=== PATIENT | female | born 1970 | race American Indian/Alaskan Native ===

== ENCOUNTER 2017-10-02 10:25 | Outpatient (CLI) | payer OTHER ==
--- NOTE | 2017-10-02 18:59 | XRay Report ---
FINAL REPORT PROCEDURE: Lumbar spine. TECHNIQUE: Three views. HISTORY: Low back pain. COMPARISON: No prior studies are available for comparison. FINDINGS: The lumbar vertebrae have normal height and satisfactory alignment. There are no fractures. There is no spondylolisthesis. There is mild disc space narrowing at L3-4. The sacrum and sacroiliac joints appear normal. IMPRESSION: Mild degenerative disc disease at L3-4.
--- NOTE | 2017-10-02 19:14 | XRay Report ---
FINAL REPORT PROCEDURE: Right and left ankles. TECHNIQUE: AP and lateral views of each ankle. HISTORY: PAIN IN ANKLE AND JOINTS OF FOOT COMPARISON: No prior studies are available for comparison. FINDINGS: Right ankle: The bones appear intact without fracture or dislocation. The joint spaces appear satisfactory. The soft tissues are unremarkable. Left ankle: The bones appear intact without fracture. The joint spaces appear satisfactory. The soft tissues are unremarkable. IMPRESSION: No significant abnormalities.
== END 2017-10-02 10:26 | disposition home or self-care (01) ==
LOC: XRAY 10:25
PROVIDERS: ATTEND Internal Medicine
DX: Z02.71 Encounter for disability determination (principal); M51.36 Other intervertebral disc degeneration, lumbar region; M25.571 Pain in right ankle and joints of right foot; M25.572 Pain in left ankle and joints of left foot
CPT/HCPCS: 72100

== ENCOUNTER 2017-10-08 09:44 | Emergency (ER) | payer SELFPAY ==
[2017-10-08 11:10] LABS: Basophils % (Auto) 0.8 % (0.0-1.8); Eosinophils # (Auto) 0.1 K/mm3 (0.0-0.4); Hematocrit 39.1 % (30.3-42.9); Hemoglobin 12.8 gm/dl (10.1-14.3); Lymphocytes # (Auto) 2.4 K/mm3 (1.2-5.4); Lymphocytes % (Auto) 36.5 % (13.4-35.0); Mean Corpuscular HGB Conc 33 % (30-34); Mean Corpuscular Hemoglobin 30 pg (28-32); Mean Corpuscular Volume 90 fl (79-97); Monocytes # (Auto) 0.4 K/mm3 (0.0-0.8); Platelet Count 175 K/mm3 (140-440); Red Blood Count 4.33 M/mm3 (3.65-5.03); Red Cell Distribution Width 13.7 % (13.2-15.2)
--- NOTE | 2017-10-08 11:19 | XRay Report ---
CHEST 2 VIEWS INDICATION: Shortness of breath. COMPARISON: None similar. FINDINGS: PA and lateral chest radiographs demonstrate normal cardiomediastinal silhouette. Clear lungs. Slight mid to lower thoracic spine degenerative spurring. CONCLUSION: No acute disease. Thank you for the opportunity to participate in this patient's care.
[2017-10-08 11:24] LABS: BUN/Creatinine Ratio 12; Blood Urea Nitrogen 13 mg/dL (7-17); Calcium 8.9 mg/dL (8.4-10.2); Hemolysis Index 6
[2017-10-08] MEDS ORDERED: NITROSTAT SL ONE (11:51)
--- NOTE | 2017-10-08 11:51 | Emergency Department Report ---
Blank Doc - Documentation Documentation: Patient is a 47-year-old [place] female with a past medical history hypertension and has not taken her antihypertensive medicines and approximately one year who is presenting with 3-4 days of chest tightness or shortness of breath and radiation to the right shoulder. Patient states that this is intermittent. Patient states she is having some chest tightness at this time. Patient will be moved to the main ED for continued care. Patient's needs to be placed on a monitor with nitroglycerin blood pressure control and possible admission.
[2017-10-08 15:03] VITALS: BP 156/104
[2017-10-08] MEDS ORDERED: HCTZ PO ONE (15:47)
[2017-10-08] MEDS ORDERED: ZESTRIL PO ONE (15:47)
--- NOTE | 2017-10-08 15:48 | Emergency Department Report ---
ED Chest Pain HPI - General Chief Complaint: Headache Stated Complaint: CHEST PAIN/HEADACHE Time Seen by Provider: 10/08/17 11:33 Source: patient, family Mode of arrival: Ambulatory Limitations: No Limitations - History of Present Illness Initial Comments: Patient is a 47-year-old female who reported chest tightness and headache pain for 2 days. Complains that she is out of her blood pressure medication which is lisinopril and HCTZ. She says she does not have a primary care physician nor does she have insurance. Denies any history of heart disease. She said her only medical problem is history of garcias and also high blood pressure. Chest tightness mid chest is 4 out of 10. Nothing makes it better and nothing makes it worse. Headache is 4-10 achy. No medication taken. Patient will be morbid obesity. Last menstrual period is 10/06/2017. She has not taken her antihypertensive medicines in approximately one year. She does have been chest pain and some shortness of breath intermittently .chest tightness at present that comes and goes but no shortness of breath at present. She currently has headache. Denies any vomiting or nausea. Denies any dizziness or blurred vision. Denies any cough, fever or chills. MD Complaint: chest pain, other (some headache and shortness of breath intermittently) Onset/Timin -: days(s) Onset: during rest Pain Location: substernal Pain Radiation: LUE Severity: mild Severity scale (0 -10): 4 Quality: tightness Consistency: intermittent Improves With: nothing Worsens With: exertion re: denies: nausea, vomting, diaphoresis, dyspnea, sense of impending doom Other Symptoms: denies: cough, fever, syncope, rash, acid taste in mouth, leg swelling, palpitations, burping Treatments Prior to Arrival: none Aspirin use within the Past 7 Days: (0) No - Related Data On Oral Contraceptives: No Previous Rx's Medication Instructions Recorded Last Taken Type Famotidine [Pepcid] 20 mg PO BID #40 tablet 10/13/15 Unknown Rx HYDROcodone/APAP 5-325 [[place] 1 each PO Q6HR PRN #20 tablet 10/13/15 Unknown Rx 5/325] Ibuprofen [Motrin] 600 mg PO Q8H PRN #40 tablet 10/13/15 Unknown Rx Lisinopril/Hydrochlorothiazide 1 tab PO QDAY #30 tablet 10/13/15 Unknown Rx [Zestoretic 10-12.5 mg] Promethazine [Phenergan TAB] 25 mg PO Q6HR PRN #30 tab 10/13/15 Unknown Rx Aspirin EC [Aspirin Enteric Coated 81 mg PO QDAY 30 Days #30 tablet. 10/08/17 Unknown Rx TAB] Hydrochlorothiazide [HCTZ] 25 mg PO QDAY 30 Days #30 tablet 10/08/17 Unknown Rx Lisinopril [Zestril TAB] 20 mg PO QDAY 30 Days #30 tablet 10/08/17 Unknown Rx Allergies Allergy/AdvReac Type Severity Reaction Status Date / Time No Known Allergies Allergy Verified 10/13/15 05:54 Heart Score - HEART Score History: Slightly suspicious EKG: Normal Age: 45-65 Risk factors: 1-2 risk factors Troponin: < normal limit HEART Score: 2 - Critical Actions Critical Actions: 0-3 pts:0.9-1.7%risk of adverse cardiac event.Candidate for discharge ED Review of Systems ROS: Stated complaint: CHEST PAIN/HEADACHE Other details as noted in HPI Comment: All other systems reviewed and negative Constitutional: no symptoms reported Eyes: denies: eye pain, eye discharge, vision change ENT: denies: ear pain, throat pain, congestion Respiratory: no symptoms reported, SOB with exertion. denies: cough, orthopnea , shortness of breath, SOB at rest, stridor, wheezing Cardiovascular: chest pain. denies: palpitations, dyspnea on exertion, orthopnea, edema, syncope, paroxysmal nocturnal dyspnea Gastrointestinal: denies: abdominal pain, nausea, vomiting, diarrhea, constipation, hematemesis, melena, hematochezia Genitourinary: denies: urgency, dysuria, hematuria Musculoskeletal: denies: back pain, joint swelling, arthralgia, myalgia Skin: denies: rash Neurological: denies: headache, weakness, numbness, paresthesias, confusion, abnormal gait, vertigo ED Past Medical Hx - Past Medical History Previous Medical History?: Yes Hx Hypertension: Yes Additional medical history: Garcias , Gallbladder pian - Surgical History Past Surgical History?: Yes Additional Surgical History: Garcias with skin grafts - Family History Family history: hypertension - Social History Smoking Status: Former Smoker Substance Use Type: None, Prescribed - Medications Home Medications: Home Medications Medication Instructions Recorded Confirmed Last Taken Type Famotidine [Pepcid] 20 mg PO BID #40 tablet 10/13/15 Unknown Rx HYDROcodone/APAP 5-325 [[place] 1 each PO Q6HR PRN #20 tablet 10/13/15 Unknown Rx 5/325] Ibuprofen [Motrin] 600 mg PO Q8H PRN #40 tablet 10/13/15 Unknown Rx Lisinopril/Hydrochlorothiazide 1 tab PO QDAY #30 tablet 10/13/15 Unknown Rx [Zestoretic 10-12.5 mg] Promethazine [Phenergan TAB] 25 mg PO Q6HR PRN #30 tab 10/13/15 Unknown Rx Aspirin EC [Aspirin Enteric Coated 81 mg PO QDAY 30 Days #30 tablet.dr 10/08/17 Unknown Rx TAB] Hydrochlorothiazide [HCTZ] 25 mg PO QDAY 30 Days #30 tablet 10/08/17 Unknown Rx Lisinopril [Zestril TAB] 20 mg PO QDAY 30 Days #30 tablet 10/08/17 Unknown Rx ED Physical Exam - General Limitations: No Limitations General appearance: alert, in no apparent distress - Head Head exam: Present: atraumatic, normocephalic, normal inspection, other (normal exam) - Eye Eye exam: Present: normal appearance, PERRL, EOMI. Absent: scleral icterus, conjunctival injection, nystagmus, periorbital swelling, periorbital tenderness Pupils: Present: normal accommodation - ENT ENT exam: Present: normal exam, normal orophraynx, mucous membranes moist - Neck Neck exam: Present: normal inspection, full ROM, other (no C-spine tenderness). Absent: tenderness, meningismus, lymphadenopathy, thyromegaly - Respiratory Respiratory exam: Present: normal lung sounds bilaterally. Absent: respiratory distress, chest wall tenderness, accessory muscle use - Cardiovascular Cardiovascular Exam: Present: regular rate, normal rhythm, normal heart sounds. Absent: systolic murmur, diastolic murmur, JVD, S3, S4 - Expanded Cardiovascular Exam Expanded Peripheral pulses: 0: Radial (L), 2+: Radial (R), Posterior Tibialis (R), Posterior Tibialis (L), Dorsalis Pedis (R), Dorsalis Pedis (L) - GI/Abdominal GI/Abdominal exam: Present: soft, normal bowel sounds. Absent: distended, tenderness, guarding, rebound, rigid, organomegaly, mass, bruit, pulsatile mass , hernia - Extremities Exam Extremities exam: Present: normal inspection, full ROM, normal capillary refill , other (no clubbing, cyanosis or edema. +2 pulses all extremities and no neurovascular compromise). Absent: tenderness, pedal edema, joint swelling, calf tenderness - Back Exam Back exam: Present: normal inspection, full ROM, other (ambulated without difficulties). Absent: tenderness, CVA tenderness (R), CVA tenderness (L), muscle spasm, paraspinal tenderness, vertebral tenderness, rash noted - Neurological Exam Neurological exam: Present: alert, oriented X3, normal gait, reflexes normal. Absent: motor sensory deficit - Expanded Neurological Exam Expanded Neurological exam: Absent: innattentive, memory loss-remote event, memory loss- recent event, ataxia, receptive aphasia, expressive aphasia, total aphasia, tremor, protecting the airway Patient oriented to: Present: person, place, time Speech: Present: fluid speech Cranial nerves: EOM's Intact: Normal, Gag Reflex: Normal, Tongue Deviation: Normal, Nystagmus: Normal, Facial Sensation: Normal Cerebellar function: Romberg: Normal Upper motor neuron: Pronator Drift: Normal, Sensory Extinction: Normal Sensory exam: Upper Extremity Light Touch: Normal, Upper Extremity Temperature: Normal, UE 2 Point Discrimination: Normal, Lower Extremity Light Touch: Normal, Lower Extremity Temperature: Normal, LE 2 Point Discrimination: Normal Motor strength exam: RUE: 5, LUE: 5, RLE: 5, LLE: 5 DTR: bicep (R): 2+, bicep (L): 2+, tricep (R): 2+, tricep (L): 2+, knee (R): 2+ , knee (L): 2+, ankle (R): 2+, ankle (L): 2+ Best Eye Response (Dominga): (4) open spontaneously Best Motor Response (Dominga): (6) obeys commands Best Verbal Response (Tovey): (5) oriented Tovey Total: 15 - Skin Skin exam: Present: warm, dry, intact, normal color. Absent: rash ED Course Vital Signs 10/08/17 10/08/17 10/08/17 10:39 12:08 14:57 Temperature 97.4 F L Pulse Rate 91 H 84 81 Respiratory 16 18 Rate Blood Pressure 161/103 137/97 156/104 O2 Sat by Pulse 98 99 Oximetry - Reevaluation(s) Reevaluation #1: 10/08/17 16:01 ED course: Patient blood pressure remains mildly elevated with diastolics slightly over 100. She was given lisinopril and HCTZ in emergency room for blood pressure management. She is not having any chest pain or headache at present. I discussed patient that she needs to take her blood pressure medication as prescribed. MANJULA score - Manjula Score Age > 65: (0) No Aspirin use within the Past 7 Days: (0) No 3 or more CAD Risk Factors: (1) Yes (patient will be referred to outpatient cardiology) 2 or more Angina events in past 24 hrs: (1) Yes (she will be referred to outpatient cardiology. She is not having any chest discomfort at present) Known CAD with more than 50% Stenosis: (0) No Elevated Cardiac Markers: (0) No ST Deviation Greater than 0.5mm: (0) No MANJULA Score: 2 ED Medical Decision Making - Lab Data Result diagrams: 10/08/17 10:52 10/08/17 10:52 Vital Signs 10/08/17 10/08/17 10/08/17 10:39 12:08 14:57 Temperature 97.4 F L Pulse Rate 91 H 84 81 Respiratory 16 18 Rate Blood Pressure 161/103 137/97 156/104 O2 Sat by Pulse 98 99 Oximetry - EKG Data -: EKG Interpreted by Me (attending physician) EKG shows normal: sinus rhythm (sinus rhythm at 76 bpm) - EKG Data Interpretation: no acute changes - Radiology Data Radiology results: report reviewed Chest x-ray reveals no acute cardiopulmonary findings - Medical Decision Making ED course: He reports that she's been having in chest tightness and headache along with some shortness of breath on and off. Chest tightness and headache it 's been on and off. She is currently not having any shortness of breath or chest tightness at present and her headache has resolved since she's been here. Patient says that she is on blood pressure medication and blood pressure was elevated upon arrival to ED. She says she has not take her blood pressure medication for over a year. Patient with history of high blood pressure, she has morbid obesity with a denser lifestyle. She doesn't have a primary care physician nor does she follow emt/paramedic. He had EKG done which was stable without any acute findings, troponin 2 is negative. CBC and BMP is stable. I discussed the patient that she will need to follow-up with outpatient emt/paramedic for further evaluation and also to follow-up with [facility] for management of chronic hypertension. She also knows that she will need to monitor her blood pressure on a daily basis and keep a log to take to primary care visit with her. Patient was given HCTZ 25 mg and lisinopril 20 mg emergency room her blood pressure is mildly elevated and she is asymptomatic at present. Patient was understanding of diagnosis, treatment plan and needed follow-up. Discharged home in stable condition with prescription for lisinopril , HCTZ and aspirin Critical care attestation.: If time is entered above; I have spent that time in minutes in the direct care of this critically ill patient, excluding procedure time. ED Disposition Clinical Impression: Elevated blood pressure reading with diagnosis of hypertension, Non compliance w medication regimen, Morbid obesity with BMI of 60.0-69.9, adult, Atypical chest pain Headache Qualifiers: Headache type: unspecified Headache chronicity pattern: acute headache Intractability: not intractable Qualified Code(s): R51 - Headache Disposition: DC-01 TO HOME OR SELFCARE Is pt being admited?: No Does the pt Need Aspirin: No Condition: Stable Instructions: Hypertension (ED), Chest Pain (ED), Low Sodium Diet (ED), DASH Eating Plan (ED), Heart Healthy Diet (ED), Acute Headache (ED), Obesity (ED), Weight Management (ED) Additional Instructions: Please see discharge instructions on diet that is conducive to weight loss and management of high blood pressure. Take lisinopril and HCTZ as prescribed. These medication or free at [facility] separately. I will bump your lisinopril up to 20 mg daily and HCTZ up to 25 mg daily Please increase her fluid intake to at least 2 L of water daily. I Would like you to follow-up with outpatient emt/paramedic Dr. Dangelo referred to discharge instruction paperwork for details. I would also like she to follow-up with [facility] for management of chronic hypertension. Please call tomorrow to schedule an appointment and while waiting for appointment keep a lot a few blood pressure and take to visit with you Prescriptions: Aspirin EC [Aspirin Enteric Coated TAB] 81 mg PO QDAY 30 Days #30 tablet. Hydrochlorothiazide [HCTZ] 25 mg PO QDAY 30 Days #30 tablet Lisinopril [Zestril TAB] 20 mg PO QDAY 30 Days #30 tablet Referrals: [facility] [Outside] - 10/09/17 TAZ DANGELO MD [Staff Physician] - 10/09/17 Forms: Accompanied Note, Work/School Release Form(ED)
== END 2017-10-08 17:07 | disposition home or self-care (01) ==
LOC: ED 09:44
DX: I10 Essential (primary) hypertension (principal); E66.01 Morbid (severe) obesity due to excess calories; R07.89 Other chest pain; Z68.44 Body mass index [BMI] 60.0-69.9, adult; Z87.891 Personal history of nicotine dependence
CPT/HCPCS: 36415; 71046; 80048; 84484; 85025; 93005; 93010; 99285

== ENCOUNTER 2018-05-29 11:13 | Emergency (ER) | payer OTHER ==
[2018-05-29 11:25] VITALS: BP 154/97
[2018-05-29 12:23] LABS: Bacteria,Urine 2+ /HPF (Negative); Bilirubin,Urine NEG (Negative); Blood,Urine LG (Negative); Color,Urine Yellow (Yellow); Urobilinogen,Urine < 2.0 mg/dL (<2.0)
[2018-05-29 12:24] LABS: WBC,Urine > 182.0 /HPF (0.0-6.0)
--- NOTE | 2018-05-29 12:33 | Emergency Department Report ---
ED Female HPI - General Chief complaint: Medical Clearance Stated complaint: BLOOD IN URINE Time Seen by Provider: 05/29/18 12:00 Source: patient Mode of arrival: Ambulatory Limitations: No Limitations - History of Present Illness Initial comments: 47-year-old female presents to the ED with complaints of dysuria frequency, dysuria, hematuria. Patient states symptoms have been present 2 days. Reported subjective fever and headache. Denies nausea and vomiting. Reports lower back pain. States has taken [id number] Azo at home without relief of symptoms. MD Complaint: dysuria -: days(s) (2) Location: suprapubic Radiation: other (back) Severity: moderate Quality: sharp Consistency: constant Improves with: none Worsens with: urination Associated Symptoms: abdominal pain, fever/chills, headaches, dysuria, hematuria. denies: nausea/vomiting - Related Data Previous Rx's Medication Instructions Recorded Last Taken Type Famotidine [Pepcid] 20 mg PO BID #40 tablet 10/13/15 Unknown Rx HYDROcodone/APAP 5-325 [[place] 1 each PO Q6HR PRN #20 tablet 10/13/15 Unknown Rx 5/325] Ibuprofen [Motrin] 600 mg PO Q8H PRN #40 tablet 10/13/15 Unknown Rx Lisinopril/Hydrochlorothiazide 1 tab PO QDAY #30 tablet 10/13/15 Unknown Rx [Zestoretic 10-12.5 mg] Promethazine [Phenergan TAB] 25 mg PO Q6HR PRN #30 tab 10/13/15 Unknown Rx Aspirin EC [Aspirin Enteric Coated 81 mg PO QDAY 30 Days #30 tablet. 10/08/17 Unknown Rx TAB] Lisinopril [Zestril TAB] 20 mg PO QDAY 30 Days #30 tablet 10/08/17 Unknown Rx hydroCHLOROthiazide [HCTZ] 25 mg PO QDAY 30 Days #30 tablet 10/08/17 Unknown Rx Lisinopril/Hydrochlorothiazide 1 tab PO QDAY #30 tab 05/29/18 Unknown Rx [Zestoretic 20-25 mg] Naproxen [Naprosyn] 500 mg PO BID #20 tablet 05/29/18 Unknown Rx Nitrofurantoin Monohyd/M-Cryst 100 mg PO BID #14 capsule 05/29/18 Unknown Rx [Macrobid 100 mg Capsule] Allergies Allergy/AdvReac Type Severity Reaction Status Date / Time No Known Allergies Allergy Verified 10/13/15 05:54 ED Review of Systems ROS: Stated complaint: BLOOD IN URINE Other details as noted in HPI Comment: All other systems reviewed and negative Constitutional: fever Gastrointestinal: abdominal pain. denies: nausea, vomiting Genitourinary: urgency, dysuria, frequency, hematuria Neurological: headache ED Past Medical Hx - Past Medical History Previous Medical History?: No Hx Hypertension: Yes Additional medical history: Ravi , Gallbladder pian - Surgical History Additional Surgical History: Ravi with skin grafts - Social History Smoking Status: Never Smoker Substance Use Type: None - Medications Home Medications: Home Medications Medication Instructions Recorded Confirmed Last Taken Type Famotidine [Pepcid] 20 mg PO BID #40 tablet 10/13/15 Unknown Rx HYDROcodone/APAP 5-325 [[place] 1 each PO Q6HR PRN #20 tablet 10/13/15 Unknown Rx 5/325] Ibuprofen [Motrin] 600 mg PO Q8H PRN #40 tablet 10/13/15 Unknown Rx Lisinopril/Hydrochlorothiazide 1 tab PO QDAY #30 tablet 10/13/15 Unknown Rx [Zestoretic 10-12.5 mg] Promethazine [Phenergan TAB] 25 mg PO Q6HR PRN #30 tab 10/13/15 Unknown Rx Aspirin EC [Aspirin Enteric Coated 81 mg PO QDAY 30 Days #30 tablet.dr 10/08/17 Unknown Rx TAB] Lisinopril [Zestril TAB] 20 mg PO QDAY 30 Days #30 tablet 10/08/17 Unknown Rx hydroCHLOROthiazide [HCTZ] 25 mg PO QDAY 30 Days #30 tablet 10/08/17 Unknown Rx Lisinopril/Hydrochlorothiazide 1 tab PO QDAY #30 tab 05/29/18 Unknown Rx [Zestoretic 20-25 mg] Naproxen [Naprosyn] 500 mg PO BID #20 tablet 05/29/18 Unknown Rx Nitrofurantoin Monohyd/M-Cryst 100 mg PO BID #14 capsule 05/29/18 Unknown Rx [Macrobid 100 mg Capsule] ED Physical Exam - General Limitations: No Limitations General appearance: alert, in no apparent distress, obese - Head Head exam: Present: atraumatic, normocephalic - Eye Eye exam: Present: normal appearance - ENT ENT exam: Present: mucous membranes moist - Neck Neck exam: Present: normal inspection - Respiratory Respiratory exam: Present: normal lung sounds bilaterally. Absent: respiratory distress - Cardiovascular Cardiovascular Exam: Present: normal rhythm, tachycardia - GI/Abdominal GI/Abdominal exam: Present: soft, tenderness (mild suprapubic tenderness present ) - Extremities Exam Extremities exam: Present: normal inspection - Back Exam Back exam: Absent: CVA tenderness (R), CVA tenderness (L) - Psychiatric Psychiatric exam: Present: normal affect, normal mood - Skin Skin exam: Present: warm, dry, intact, normal color. Absent: rash ED Course Vital Signs 05/29/18 11:20 Temperature 98.9 F Pulse Rate 104 H Respiratory 18 Rate Blood Pressure 154/97 O2 Sat by Pulse 98 Oximetry ED Medical Decision Making - Medical Decision Making 47-year-old female with UTI. Reported back pain, however no CVA tenderness present. Will treat with outpatient antibiotics. Patient advised to follow up with PCP. Return precautions given. Patient also requests a refill on her BP meds. - Differential Diagnosis UTI, pyelonephritis Critical care attestation.: If time is entered above; I have spent that time in minutes in the direct care of this critically ill patient, excluding procedure time. ED Disposition Clinical Impression: UTI (urinary tract infection) Disposition: TO HOME OR SELFCARE Is pt being admited?: No Condition: Stable Instructions: Urinary Tract Infection in Women (ED) Prescriptions: Lisinopril/Hydrochlorothiazide [Zestoretic 20-25 mg] 1 tab PO QDAY #30 tab Naproxen [Naprosyn] 500 mg PO BID #20 tablet Nitrofurantoin Monohyd/M-Cryst [Macrobid 100 mg Capsule] 100 mg PO BID #14 capsule Referrals: PRIMARY CARE,MD [Primary Care Provider] - 3-5 Days Time of Disposition: 12:34
== END 2018-05-29 13:03 | disposition home or self-care (01) ==
LOC: ED 11:13
DX: N39.0 Urinary tract infection, site not specified (principal); I10 Essential (primary) hypertension
CPT/HCPCS: 81001; 99283

== ENCOUNTER 2019-07-31 08:47 | Emergency (ER) | payer SELFPAY ==
--- NOTE | 2019-07-31 08:55 | Event Note ---
ED Screening Note Date of service: 07/31/19 Time: 08:52 ED Screening Note: 48 y/o female comes in for rapid heart rate and weakness. Has been off meds for months. No primary care provider. This initial assessment/diagnostic orders/clinical plan/treatment(s) is/are subject to change based on patients health status, clinical progression and re- assessment by fellow clinical providers in the ED. Further treatment and workup at subsequent clinical providers discretion. Patient/guardian urged not to elope from the ED as their condition may be serious if not clinically assessed and managed. Initial orders include:
[2019-07-31 09:31] LABS: Basophils % (Auto) 0.8 % (0.0-1.8); Eosinophils # (Auto) 0.1 K/mm3 (0.0-0.4); Hematocrit 39.6 % (30.3-42.9); Hemoglobin 12.9 gm/dl (10.1-14.3); Lymphocytes # (Auto) 1.9 K/mm3 (1.2-5.4); Lymphocytes % (Auto) 37.7 % (13.4-35.0); Mean Corpuscular HGB Conc 33 % (30-34); Mean Corpuscular Volume 91 fl (79-97); Monocytes # (Auto) 0.3 K/mm3 (0.0-0.8); Platelet Count 168 K/mm3 (140-440); Red Blood Count 4.34 M/mm3 (3.65-5.03); Red Cell Distribution Width 13.9 % (13.2-15.2)
--- NOTE | 2019-07-31 09:31 | XRay Report ---
CHEST 2 VIEWS INDICATION: rapid heart rate and weakness. COMPARISON: 10/08/2017 FINDINGS: Support devices: None. Heart: Within normal limits. Lungs/pleura: No acute air space or interstitial disease. No pneumothorax. Additional findings: None. IMPRESSION: 1. No acute findings. Signer Name: Derrick Pham MD Signed: 07/31/2019 9:27 AM Workstation Name: [id number]
[2019-07-31 09:57] LABS: Alanine Aminotransferase 16 units/L (7-56); Albumin 3.9 g/dL (3.9-5); BUN/Creatinine Ratio 11; Blood Urea Nitrogen 10 mg/dL (7-17); Hemolysis Index 10
--- NOTE | 2019-07-31 10:38 | Emergency Department Report ---
HPI - General Chief Complaint: Arrhythmia/Palpitations Time Seen by Provider: 07/31/19 09:19 - HPI HPI: 48-year-old female presents to the emergency department with a complaint of a 5 day history of some palpitations where she says it feels like her heart is racing and sometimes skips a beat. She denies any chest pain, shortness of breath, fever, nausea or vomiting. Patient admits that her blood pressure is often elevated as she has run out of the medication, [id number]. She does not have a primary care physician and usually gets the medication refilled in the emergency department. She denies any tobacco or illicit drug use. No recent travel or sick contacts at home. She denies any fever, lower extremity swelling, nausea, vomiting. She has not taken anything for her symptoms prior to arrival today. ED Past Medical Hx - Past Medical History Previous Medical History?: Yes Hx Hypertension: Yes Additional medical history: Ravi , Gallbladder pain - Surgical History Past Surgical History?: Yes Additional Surgical History: Ravi with skin grafts - Social History Smoking Status: Former Smoker Substance Use Type: Alcohol - Medications Home Medications: Home Medications Medication Instructions Recorded Confirmed Last Taken Type Famotidine [Pepcid] 20 mg PO BID #40 tablet 10/13/15 Unknown Rx HYDROcodone/APAP 5-325 [[place] 1 each PO Q6HR PRN #20 tablet 10/13/15 Unknown Rx 5/325] Ibuprofen [Motrin] 600 mg PO Q8H PRN #40 tablet 10/13/15 Unknown Rx Lisinopril/Hydrochlorothiazide 1 tab PO QDAY #30 tablet 10/13/15 Unknown Rx [Zestoretic 10-12.5 mg] Promethazine [Phenergan TAB] 25 mg PO Q6HR PRN #30 tab 10/13/15 Unknown Rx Aspirin EC [Halfprin EC] 81 mg PO QDAY 30 Days #30 tablet 10/08/17 Unknown Rx Lisinopril [Zestril TAB] 20 mg PO QDAY 30 Days #30 tablet 10/08/17 Unknown Rx hydroCHLOROthiazide [HCTZ] 25 mg PO QDAY 30 Days #30 tablet 10/08/17 Unknown Rx Naproxen [Naprosyn] 500 mg PO BID #20 tablet 05/29/18 Unknown Rx Nitrofurantoin Monohyd/M-Cryst 100 mg PO BID #14 capsule 05/29/18 Unknown Rx [Macrobid 100 mg Capsule] Lisinopril/Hydrochlorothiazide 1 tab PO QDAY #30 tab 07/31/19 Unknown Rx [Zestoretic 20-25 mg] ED Review of Systems ROS: Stated complaint: RAPID HEART BEAT Other details as noted in HPI Comment: All other systems reviewed and negative Constitutional: denies: chills, fever Eyes: denies: eye pain, vision change ENT: denies: ear pain, throat pain Respiratory: denies: cough, shortness of breath Cardiovascular: palpitations. denies: chest pain, edema Gastrointestinal: denies: abdominal pain, vomiting Genitourinary: denies: dysuria, discharge Musculoskeletal: denies: back pain, arthralgia Skin: denies: rash, lesions Neurological: denies: headache, weakness Physical Exam - Physical Exam Vital Signs: Vital Signs 07/31/19 07/31/19 08:51 09:38 Temperature 97.5 F L 97.9 F Pulse Rate 98 H 84 Respiratory 20 18 Rate Blood Pressure 180/93 Blood Pressure 142/80 [Left] O2 Sat by Pulse 98 99 Oximetry Physical Exam: GENERAL: The patient is well-developed well-nourished. HENT: Normocephalic. Atraumatic. Patient has moist mucous membranes. EYES: Extraocular motions are intact. NECK: Supple. Trachea is midline. CHEST/LUNGS: Clear to auscultation. There is no respiratory distress noted. HEART/CARDIOVASCULAR: Regular. There is no tachycardia. There is no murmur. ABDOMEN: Abdomen is soft, nontender. Patient has normal bowel sounds. Obese habitus. SKIN: Skin is warm and dry. NEURO: The patient is awake, alert, and oriented. The patient is cooperative. The patient has no focal neurologic deficits. Normal speech. MUSCULOSKELETAL: There is no tenderness or deformity. There is no limitation range of motion. There is no evidence of acute injury. ED Course Vital Signs 07/31/19 07/31/19 08:51 09:38 Temperature 97.5 F L 97.9 F Pulse Rate 98 H 84 Respiratory 20 18 Rate Blood Pressure 180/93 Blood Pressure 142/80 [Left] O2 Sat by Pulse 98 99 Oximetry ED Medical Decision Making - Lab Data Result diagrams: 07/31/19 09:06 07/31/19 09:06 - EKG Data -: EKG Interpreted by Me EKG shows normal: sinus rhythm, axis, intervals, QRS complexes, ST-T waves Rate: normal - EKG Data When compared to previous EKG there are: previous EKG unavailable Interpretation: normal EKG - Radiology Data Radiology results: image reviewed interpreted by me: Chest x-ray does not show any acute process. There are no pleural effusions, obvious pneumonia and there is no pneumothorax. - Medical Decision Making Patient presents with a 4-5 day history of palpitations. She denies any actual chest pain, shortness of breath. EKG did not show any signs of ST elevation [place], ischemia or dysrhythmia. Chest x-ray did not show any pleural effusions, pne umonia, pneumothorax, focal consolidation, or any other acute process. Her labs are unremarkable including CBC, metabolic panel, TSH and a troponin. Patient did present with some hypertension but it came down to a more reasonable level without any medications given by us. She was reevaluated multiple times over multiple hours and has remained stable and denies having any of the palpitations while in the emergency department. For all these reasons, the patient appears safe for discharge home at this time. She's been given a referral for local primary care physicians and clinics, cardiology, and has been given a perception for a refill of her blood pressure medication. She will return to the emergency Department with any worsening of her symptoms or any acute distress. - Differential Diagnosis dysrhythmia, hyperthyroidism, electrolyte abnormalities, [place] Critical Care Time: No Critical care attestation.: If time is entered above; I have spent that time in minutes in the direct care of this critically ill patient, excluding procedure time. ED Disposition Clinical Impression: Palpitations Disposition: DC-01 TO HOME OR SELFCARE Is pt being admited?: No Condition: Stable Instructions: Palpitations (ED) Additional Instructions: Please follow-up with a primary care physician in the next few days. I am also giving you a referral for a local rubber gasket inspector trimmer, Dr. Almanza, to follow up regarding your palpitations. Return to the emergency Department with any worsening of your symptoms or any acute distress. Prescriptions: Lisinopril/Hydrochlorothiazide [Zestoretic 20-25 mg] 1 tab PO QDAY #30 tab Referrals: MILAGROS RAMIREZ MD [Staff Physician] - 2-3 Days BERRY ESCUDERO MD [Staff Physician] - 2-3 Days [facility] [Outside] - 2-3 Days Time of Disposition: 11:50
[2019-07-31 11:14] VITALS: BP 125/66
== END 2019-07-31 11:59 | disposition home or self-care (01) ==
LOC: ED 08:47
DX: R00.2 Palpitations (principal); I10 Essential (primary) hypertension; Z87.891 Personal history of nicotine dependence; Z79.899 Other long term (current) drug therapy
CPT/HCPCS: 36415; 71046; 80053; 84443; 84484; 85025; 93005; 93010